=== PATIENT | male | born 1995 | race African-American/Black ===

== ENCOUNTER 2023-12-02 16:48 | Emergency (ER) | payer SELFPAY ==
[~2023-12-02] VITALS: Ht 167.6 cm; Wt 68.2 kg
[2023-12-02 16:55] VITALS: BP 132/87; PULSE 87; RESP 16; TEMP 98.2; O2SAT 99
== END 2023-12-02 17:30 | disposition left against medical advice (07) ==
LOC: MED 16:48
DX: S61.559A Open bite of unspecified wrist, initial encounter (principal); Z53.21 Procedure and treatment not carried out due to patient leaving prior to being seen by health care provider; Y08.89XA Assault by other specified means, initial encounter; Y93.89 Activity, other specified; Y92.89 Other specified places as the place of occurrence of the external cause; Y99.8 Other external cause status